=== PATIENT | male | born 1960 | race African-American/Black ===

== ENCOUNTER 2016-09-21 09:20 | Outpatient (CLI) | payer OTHER ==
[2016-09-21] MEDS ORDERED: PROVENTIL IH ONE (09:35)
== END 2016-09-21 09:21 | disposition home or self-care (01) ==
LOC: PF 09:20
PROVIDERS: ATTEND Internal Medicine
DX: J45.20 Mild intermittent asthma, uncomplicated (principal)
CPT/HCPCS: 36415; 82785; 94060; 94640; 94726; 94729

== ENCOUNTER 2017-06-22 17:27 | Emergency (ER) | payer OTHER ==
[2017-06-22 21:24] VITALS: BP 136/96
--- NOTE | 2017-06-22 22:08 | Cat Scan Report ---
FINAL REPORT PROCEDURE: CT HEAD/BRAIN WO CON TECHNIQUE: Computerized tomography of the head was performed without contrast material. HISTORY: NUMBESS LEFT UPPER EXTR COMPARISON: No prior studies are available for comparison. FINDINGS: Brain: Brain density appears normal. No evidence of intracranial hemorrhage. No parenchymal hemorrhage, mass lesions or mass effect are seen. No abnormal extraxial fluid collects or masses are seen. Ventricles: Ventricles are normal size and are midline. Bone Windows: No evidence of skull fracture. Paranasal sinuses: Clear Mastoid air cells: Clear IMPRESSION: Negative examination. If symptoms persist or worsen consider follow-up CT scan or MRI for further evaluation.
[2017-06-22 22:26] LABS: BUN/Creatinine Ratio 12; Blood Urea Nitrogen 13 mg/dL (9-20); Calcium 9.4 mg/dL (8.4-10.2); Hemolysis Index 8
[2017-06-22 22:28] LABS: Basophils # (Auto) 0.1 K/mm3 (0.0-0.1); Eosinophils # (Auto) 0.2 K/mm3 (0.0-0.4); Eosinophils % (Auto) 2.3 % (0.0-4.3); Hematocrit 48.8 % (35.5-45.6); Hemoglobin 15.8 gm/dl (11.8-15.2); Lymphocytes # (Auto) 2.2 K/mm3 (1.2-5.4); Lymphocytes % (Auto) 25.7 % (13.4-35.0); Mean Corpuscular HGB Conc 33 % (32-34); Mean Corpuscular Hemoglobin 28 pg (28-32); Mean Corpuscular Volume 85 fl (84-94); Monocytes # (Auto) 0.5 K/mm3 (0.0-0.8); Monocytes % (Auto) 5.4 % (0.0-7.3); Platelet Count 207 K/mm3 (140-440); Red Blood Count 5.71 M/mm3 (3.65-5.03)
[2017-06-22 22:31] LABS: Basophils % (Auto) 1.2 % (0.0-1.8)
== END 2017-06-22 23:45 | disposition left against medical advice (07) ==
LOC: ED 17:27
DX: R20.0 Anesthesia of skin (principal); Z53.21 Procedure and treatment not carried out due to patient leaving prior to being seen by health care provider
CPT/HCPCS: 36415; 70450; 80048; 85025